=== PATIENT | male | born 1965 | race Caucasian/White ===

== ENCOUNTER 2017-11-04 10:50 | Emergency (ER) | payer MEDICAID ==
[~2017-11-04] VITALS: Ht 182.9 cm; Wt 78.0 kg
[~2017-11-04 10:50] MED LIST: CLIN-80 PO; PERM60CR4 TP
[2017-11-04 11:22] VITALS: BP 186/124
[2017-11-04] MEDS ORDERED: PERM60CR19 TP (12:37)
[2017-11-04] MEDS ORDERED: DOXY100C2 PO (12:37)
== END 2017-11-04 12:52 | disposition home or self-care (01) ==
LOC: ER 10:51
DX: R21 Rash and other nonspecific skin eruption (principal); I10 Essential (primary) hypertension; Z86.14 Personal history of Methicillin resistant Staphylococcus aureus infection
CPT/HCPCS: 99283

== ENCOUNTER 2017-11-18 20:18 | Emergency (ER) | payer MEDICAID ==
[~2017-11-18] VITALS: Ht 177.8 cm; Wt 84.1 kg
[~2017-11-18 20:18] MED LIST changes: -CLIN-80 PO; +CLIN300C85 PO; +PERM60CR19 TP
[2017-11-18] MEDS ORDERED: PERM60CR19 TP (20:33)
[2017-11-18 20:47] VITALS: BP 185/80
== END 2017-11-18 20:50 | disposition home or self-care (01) ==
LOC: ER 20:18
DX: L29.9 Pruritus, unspecified (principal); B86 Scabies; I10 Essential (primary) hypertension; Z86.14 Personal history of Methicillin resistant Staphylococcus aureus infection; Z60.2 Problems related to living alone; Z79.899 Other long term (current) drug therapy
CPT/HCPCS: 99282

== ENCOUNTER 2018-03-04 15:57 | Emergency (ER) | payer MEDICAID ==
[~2018-03-04] VITALS: Ht 182.9 cm; Wt 77.3 kg
[~2018-03-04 15:57] MED LIST changes: -PERM60CR19 TP
[2018-03-04] MEDS ORDERED: Ivermectin 3mg tablet PO SCH (16:45)
[2018-03-04 17:10] LABS: BASOPHILS % (AUTO) 0.1 % (0-1); EOSINOPHILS # (AUTO) 0.3 X10'3 (0-0.9); EOSINOPHILS % (AUTO) 1.8 % (0-6); HEMATOCRIT 39.5 % (42.0-52.0); HEMOGLOBIN 13.3 g/dl (14.0-17.9); LYMPHOCYTES # (AUTO) 1.1 X10'3 (1.1-4.8); LYMPHOCYTES % (AUTO) 7.2 % (21-51); MEAN CORPUSCULAR HEMOGLOBIN 29.9 PG (27.0-31.0); MEAN CORPUSCULAR HGB CONC 33.7 % (33.0-36.5); MEAN CORPUSCULAR VOLUME 88.9 FL (78-98); MEAN PLATELET VOLUME 7.6 FL (7.4-10.4); MONOCYTES # (AUTO) 0.8 X10'3 (0-0.9); MONOCYTES % (AUTO) 5.2 % (2-12); NEUTROPHILS # (AUTO) 13.5 X10'3 (1.8-7.7); NEUTROPHILS % (AUTO) 85.7 % (42-75); PLATELET COUNT 418 X10'3 (140-440); RED BLOOD COUNT 4.44 X10'6 (4.70-6.10); RED CELL DISTRIBUTION WIDTH 12.4 % (11.5-14.5); WHITE BLOOD COUNT 15.7 X10'3 (4.5-11.0)
[2018-03-04 17:23] LABS: ALANINE AMINOTRANSFERASE 18 U/L (12-78); ALBUMIN/GLOBULIN RATIO 0.6 (1.1-1.5); ALKALINE PHOSPHATASE 58 IU/L (46-116); ANION GAP 7 (8-16); ASPARTATE AMINO TRANSFERASE 13 U/L (10-37); BILIRUBIN,TOTAL 0.4 MG/DL (0.1-1.0); BLOOD UREA NITROGEN 20 MG/DL (7-18); BUN/CREATININE RATIO 16.1 (5.4-32.0); CALCIUM 9.3 MG/DL (8.5-10.1); CHLORIDE 96 MMOL/L (99-107); CREATININE 1.24 MG/DL (0.60-1.10); GLUCOSE 107 MG/DL (70-104); LIPASE 120 U/L (73-393); POTASSIUM 3.7 MMOL/L (3.5-5.1); SODIUM 133 MMOL/L (135-145); TOTAL CARBON DIOXIDE 29.8 MMOL/L (24-32); eGFR 61 ML/MIN
[2018-03-04] MEDS ORDERED: PERM60CR4 TOP (17:39)
[2018-03-04] MEDS ORDERED: DOXY100C43 PO (17:39)
[2018-03-04 18:19] VITALS: BP 154/90
[2018-03-04] MEDS ORDERED: METR500T4 PO (19:19)
[2018-03-04] MEDS ORDERED: CIPR-230 PO (19:19)
[2018-03-04] MEDS ORDERED: ciprofloxacin 250mg tablet PO ONE (19:25)
[2018-03-04] MEDS ORDERED: metroNIDAZOLE 500mg tablet PO ONE (19:25)
== END 2018-03-04 19:35 | disposition home or self-care (01) ==
LOC: ER 16:00
DX: L98.9 Disorder of the skin and subcutaneous tissue, unspecified (principal); K57.92 Diverticulitis of intestine, part unspecified, without perforation or abscess without bleeding; I10 Essential (primary) hypertension; Z86.14 Personal history of Methicillin resistant Staphylococcus aureus infection; Z60.2 Problems related to living alone; Z59.0 Homelessness; Z79.2 Long term (current) use of antibiotics; Z79.899 Other long term (current) drug therapy
CPT/HCPCS: 36415; 74176; 80053; 83690; 85025; 99285; J3490

== ENCOUNTER 2018-05-01 10:22 | Emergency (ER) | payer MEDICAID ==
[~2018-05-01] VITALS: Ht 180.3 cm; Wt 72.6 kg
[~2018-05-01 10:22] MED LIST changes: +PERM60CR4 TOP
[2018-05-01 10:38] VITALS: BP 114/85
[2018-05-01] MEDS ORDERED: DOXY100C43 PO (11:54)
[2018-05-01] MEDS ORDERED: HYDROcodone/acetaminophen 5mg/325mg tablet PO ONE (11:55)
[2018-05-01] MEDS ORDERED: ibuprofen tablet 400 MG TABLET PO ONE (12:10)
== END 2018-05-01 12:31 | disposition home or self-care (01) ==
LOC: ER 10:22
DX: L03.116 Cellulitis of left lower limb (principal); R21 Rash and other nonspecific skin eruption; I10 Essential (primary) hypertension
CPT/HCPCS: 99283